=== PATIENT | male | born 1990 | race Caucasian/White ===

== ENCOUNTER 2016-12-02 08:38 | Emergency (ER) | payer OTHER ==
[~2016-12-02] VITALS: Ht 187.9 cm; Wt 108.9 kg
== END 2016-12-02 11:01 | disposition home or self-care (01) ==
LOC: ED 08:38
DX: M79.631 Pain in right forearm (principal); F17.200 Nicotine dependence, unspecified, uncomplicated; Z88.0 Allergy status to penicillin; W22.01XA Walked into wall, initial encounter; Y93.89 Activity, other specified; Y92.89 Other specified places as the place of occurrence of the external cause; Y99.9 Unspecified external cause status

== ENCOUNTER 2017-04-23 21:49 | Emergency (ER) | payer OTHER ==
[~2017-04-23] VITALS: Ht 185.4 cm; Wt 108.9 kg
[2017-04-23] MEDS ORDERED: PROAIR HFA8.5 GM INH (22:49)
[2017-04-23] MEDS ORDERED: MUCINEX DM ER1 EACH PO (22:49)
[2017-04-23] MEDS ORDERED: PREDNISONE10 MG PO (22:49)
== END 2017-04-23 23:00 | disposition home or self-care (01) ==
LOC: ED 21:49
DX: J40 Bronchitis, not specified as acute or chronic (principal); F17.200 Nicotine dependence, unspecified, uncomplicated; Z88.0 Allergy status to penicillin

== ENCOUNTER 2017-06-12 11:33 | Emergency (ER) | payer OTHER ==
[~2017-06-12] VITALS: Ht 187.9 cm; Wt 106.6 kg
[~2017-06-12 11:33] MED LIST: MUCINEX DM ER1 EACH PO; PREDNISONE10 MG PO; PROAIR HFA8.5 GM INH
[2017-06-12] MEDS ORDERED: ZOFRAN ODT4 MG SL (12:04)
== END 2017-06-12 12:36 | disposition home or self-care (01) ==
LOC: ED 11:33
DX: K52.9 Noninfective gastroenteritis and colitis, unspecified (principal); F17.200 Nicotine dependence, unspecified, uncomplicated; Z88.0 Allergy status to penicillin

== ENCOUNTER 2017-07-21 04:01 | Emergency (ER) | payer OTHER ==
[~2017-07-21] VITALS: Ht 187.9 cm; Wt 120.2 kg
[~2017-07-21 04:01] MED LIST changes: +ZOFRAN ODT4 MG SL
[2017-07-21] MEDS ORDERED: IBUPROFEN600 MG PO (05:24)
== END 2017-07-21 05:37 | disposition home or self-care (01) ==
LOC: ED 04:01
DX: S93.401A Sprain of unspecified ligament of right ankle, initial encounter (principal); R60.0 Localized edema; F17.200 Nicotine dependence, unspecified, uncomplicated; Z88.0 Allergy status to penicillin; X50.1XXA Overexertion from prolonged static or awkward postures, initial encounter; Y93.89 Activity, other specified; Y92.89 Other specified places as the place of occurrence of the external cause; Y99.9 Unspecified external cause status

== ENCOUNTER 2017-08-04 23:51 | Emergency (ER) | payer OTHER ==
[~2017-08-04] VITALS: Ht 180.3 cm; Wt 90.7 kg
[~2017-08-04 23:51] MED LIST changes: +IBUPROFEN600 MG PO
[2017-08-05] MEDS ORDERED: CLARITIN10 MG PO (00:59)
[2017-08-05] MEDS ORDERED: TESSALON PERLE100 M1 PO (00:59)
== END 2017-08-05 01:12 | disposition home or self-care (01) ==
LOC: ED 23:51
DX: J06.9 Acute upper respiratory infection, unspecified (principal); F17.200 Nicotine dependence, unspecified, uncomplicated; Z79.899 Other long term (current) drug therapy; Z88.0 Allergy status to penicillin

== ENCOUNTER 2017-09-21 20:20 | Emergency (ER) | payer SELFPAY ==
[~2017-09-21] VITALS: Ht 187.9 cm; Wt 106.6 kg
[~2017-09-21 20:20] MED LIST changes: +CLARITIN10 MG PO; +TESSALON PERLE100 M1 PO
[2017-09-21] MEDS ORDERED: ZITHROMAX250 MG PO (21:13)
== END 2017-09-21 21:38 | disposition home or self-care (01) ==
LOC: ED 20:20
DX: J32.9 Chronic sinusitis, unspecified (principal); H66.91 Otitis media, unspecified, right ear; F17.200 Nicotine dependence, unspecified, uncomplicated; Z88.0 Allergy status to penicillin; Z79.899 Other long term (current) drug therapy

== ENCOUNTER 2018-01-02 22:03 | Emergency (ER) | payer SELFPAY ==
[~2018-01-02] VITALS: Ht 187.9 cm; Wt 113.4 kg
[~2018-01-02 22:03] MED LIST changes: +ZITHROMAX250 MG PO
[2018-01-02] MEDS ORDERED: CLINDAMYCIN150 MG PO (22:26)
== END 2018-01-02 22:40 | disposition home or self-care (01) ==
LOC: ED 22:03
DX: J01.90 Acute sinusitis, unspecified (principal); F17.200 Nicotine dependence, unspecified, uncomplicated; Z88.0 Allergy status to penicillin; Z79.899 Other long term (current) drug therapy

== ENCOUNTER 2020-02-10 11:12 | Emergency (ER) | payer OTHER ==
[~2020-02-10] VITALS: Ht 187.9 cm; Wt 108.9 kg
[~2020-02-10 11:12] MED LIST changes: +CLINDAMYCIN150 MG PO
[2020-02-10] MEDS ORDERED: SUBOXONE 8 MG-1 EACH SL (12:34)
[2020-02-10] MEDS ORDERED: IBUPROFEN600 MG PO (14:11)
[2020-02-10] MEDS ORDERED: SILVADENE,SSD C50 GM T (14:11)
== END 2020-02-10 14:56 | disposition home or self-care (01) ==
LOC: ED 11:12
DX: L55.0 Sunburn of first degree (principal); F17.200 Nicotine dependence, unspecified, uncomplicated; Z88.0 Allergy status to penicillin; Z79.899 Other long term (current) drug therapy